=== PATIENT | female | born 1995 | race African-American/Black ===

== ENCOUNTER → 2017-01-22 | Outpatient (CLI) | payer BC ==
[2017-01-22 17:12] LABS: THYROID STIMULATING HORMONE 25.3 uIU/mL (0.47-4.68)
== END ==
LOC: OD 14:10
PROVIDERS: ATTEND Pediatrics
DX: E03.9 Hypothyroidism, unspecified (principal)
CPT/HCPCS: 36415; 82310; 84436; 84439; 84443

== ENCOUNTER → 2019-02-10 | Outpatient (CLI) | payer BC, MEDICAID ==
--- NOTE | 2019-02-10 11:49 | RADIOLOGY REPORT (SQ) ---
EXAM DESCRIPTION: U/S THYROID/SFT TISS HD NECK COMPLETED DATE/TIME: 02/10/2019 10:57 am REASON FOR STUDY: PERSONAL HX OF MAL NAREN OF THYROID Z85.850 PERSONAL HISTORY OF MALIGNANT NEOPLASM OF THYROID COMPARISON: 12/04/2013 TECHNIQUE: Dynamic and static anand-scale images acquired of the thyroid gland. Selected additional c olor/power Doppler images recorded. All images stored to PACS. LIMITATIONS: None. FINDINGS: RIGHT LOBE: Prior thyroidectomy. No definite residual thymic tissue. . LEFT LOBE: Prior thyroidectomy. No obvious residual thyroid tissue. ISTHMUS: Normal size. Homogeneous echotexture. No cystic or solid masses. OTHER: No other significant finding. IMPRESSION: Normal isthmus. No definite residual thyroid tissue on the right or left. TECHNICAL DOCUMENTATION: JOB ID: [id number] [employer]- All Rights Reserved Reading location - IP/workstation name: [email or web address]
== END ==
LOC: RAD 10:28
PROVIDERS: ATTEND Physician Assistant
DX: Z85.850 Personal history of malignant neoplasm of thyroid (principal)
CPT/HCPCS: 76536

== ENCOUNTER 2020-05-07 06:12 | Day surgery (SDC) | payer BC ==
[~2020-05-07 06:12] MED LIST: CEFAZOLIN 1 GM/D5W RTU 1 GM/50 ML RTUPB IV ONE; CEFAZOLIN 2 GM/D5W RTU 2 GM/50 ML RTUPB IV PRN; LACTATED RINGERS 1000 ML IV PRN; LIDOCAINE 0.5% INJ-PF (5 MG/ML) 50 ML SDV SUBCUT PRN
[2020-05-07] MEDS ORDERED: FENTANYL CITRATE INJ/PF 100 MCG/2 ML AMPUL ONE (06:17)
[2020-05-07] MEDS ORDERED: MIDAZOLAM 2 MG/2 ML INJ ONE (06:18)
[2020-05-07] MEDS ORDERED: PROPOFOL INJ 200 MG/20 ML VIAL IV ONE (06:18)
[2020-05-07] MEDS ORDERED: DEXAMETHASONE SOD PHOSPHATE INJ 4 MG/1 ML VIAL ONE (06:18)
[2020-05-07] MEDS ORDERED: ONDANSETRON HCL INJ/PF 4 MG/2 ML SDV ONE (06:18)
[2020-05-07] MEDS ORDERED: BUPIVACAINE INJ/PF LIPOSOME/PF 266 MG/20 ML SDV ONE (09:14)
--- NOTE | 2020-05-07 09:36 | Operative Report ---
Nonrecallable Operative Report DATE OF SURGERY: 05/07/20 PREOPERATIVE DIAGNOSIS: Hidradenitis right axilla POSTOPERATIVE DIAGNOSIS: Hidradenitis right axilla OPERATION: Excision of hidradenitis right axilla SURGEON: DERRICK FLORES 1ST ACCOUNTING OFFICE MANAGER: CHENCHO BROWN ANESTHESIA: GA TISSUE REMOVED OR ALTERED: Skin right axilla COMPLICATIONS: None ESTIMATED BLOOD LOSS: 10 cc INTRAOPERATIVE FINDINGS: See note PROCEDURE: Patient was brought to the operating room awake alert stable condition placed in the upper table supine position induced under general anesthesia intubated. The right axilla was prepped and draped in usual sterile fashion for the procedure. A elliptical incision was made in the right axillary skin just below the axillary crease in the area of multiple sinus tracts and small abscesses. The elliptical incision was approximately 20 cm long by 3 cm wide. Dissection was carried down through subcutaneous tissue with a 15 blade to the subcutaneous fat which was then excised with the Bovie cautery. We did not reach the deep clavipectoral fascia. The wound was irrigated normal saline suctioned dry the a [place] drain was placed at the base of the wound and brought out through the inferior aspect of it and the deep subcu tissue was reapproximated with interrupted 3-0 Vicryl and skin was reapproximated interrupted 3-0 nylon a sterile dressing was applied to complete the procedure estimated blood loss was less than 10 cc sponge and needle counts correct x2 the patient was awakened in the operative extubated transferred recovery in stable condition no complications
[2020-05-07] MEDS ORDERED: HYDROCODONE/ACETAMINOPHEN 10-325 MG TABLET PO PRN (09:41)
--- NOTE | 2020-05-07 09:41 | Discharge Summary ---
Discharge Summary (SDC) - Discharge Final Diagnosis: Hidradenitis right axilla Date of Surgery: 05/07/20 Discharge Date: 05/07/20 Condition: Good Treatment or Instructions: Dressing should remain in place for approximately 48 hours which time it can be removed and she could shower with a dry gauze placed after shower. Prescriptions: Hydrocodone/Acetaminophen [Pruden 10-325 mg Tablet] 1 tab PO Q6HP PRN #15 tablet PRN Reason: Referrals: STEVEN DAILY PA [Primary Care Provider] - Discharge Diet: As Tolerated Discharge Activity: Activity As Tolerated Report the Following to Your Physician Immediately: Increase in Pain, Unusual Bleeding - needs f/u in surgery clinic in 10-14 days.
[2020-05-07] MEDS ORDERED: MEPERIDINE HCL/PF INJ 25 MG/1 ML DISP.SYRIN IV PRN (09:45)
[2020-05-07] MEDS ORDERED: MORPHINE SULFATE 10 MG/ML INJ IV PRN (09:45)
[2020-05-07] MEDS ORDERED: FENTANYL CITRATE INJ/PF 100 MCG/2 ML AMPUL IV PRN ×3 (09:45)
[2020-05-07] MEDS ORDERED: ONDANSETRON HCL INJ/PF 4 MG/2 ML SDV IV PRN (09:45)
[2020-05-07] MEDS ORDERED: PROMETHAZINE HCL INJ 25 MG/1 ML VIAL IV PRN ×2 (09:45)
[2020-05-07] MEDS ORDERED: DIPHENHYDRAMINE HCL 50 MG/ML VIAL IV PRN (09:45)
[2020-05-07] MEDS ORDERED: HYDROCODONE/ACETAMINOPHEN 10-325 MG TABLET ONE (10:28)
[2020-05-07 11:46] VITALS: BP 125/72
[2020-05-07] MEDS ORDERED: SUCCINYLCHOLINE CHLORIDE INJ 200 MG/10 ML VIAL ONE (14:11)
== END 2020-05-07 11:25 | disposition home or self-care (01) ==
LOC: OROUT 06:12
PROVIDERS: ATTEND Surgery
DX: L73.2 Hidradenitis suppurativa (principal); E89.0 Postprocedural hypothyroidism; Z79.899 Other long term (current) drug therapy; Z85.850 Personal history of malignant neoplasm of thyroid
CPT/HCPCS: 87635; 81025; 11450; J2250; J0690; J1100; J3010; J0330; J2405; J2704; C9290; C9803; 400